=== PATIENT | female | born 1970 | race Caucasian/White ===

== ENCOUNTER 2016-09-11 17:24 | Emergency (ER) | payer BC ==
--- NOTE | ~2016-09-11 | EKG ---
PATIENT: CAROLINE REEVES UNIT #: [id number] Ventricular Rate: 84 BPM Atrial Rate: 84 BPM P-R Interval: 136 ms QRS Duration: 76 ms Q-T Interval: 352 ms QTC Calculation(Bezet): 415 ms P [place]: 29 degrees Calculated R [place]: 26 degrees Calculated T [place]: 6 degrees Diagnosis Line: Normal sinus rhythm Diagnosis Line: Normal ECG Diagnosis Line: No previous ECGs available Diagnosis Line: Confirmed by IRAIDA MCKINLEY MD ([id number]) on 09/13/2016 Diagnosis Line: 5:31:30 PM INTERPRETING MD: ARLEN VELAZCO
--- NOTE | ~2016-09-11 | CR72 ---
[facility] A Service of [facility] & [facility] RADIOLOGY TEXT RESULTS PATIENT: CAROLINE REEVES LOCATION: [facility] : 74 UNIT #: [id number] AGE: [address]: Azucena Barnard MD SEX: F ORDER DR: [id number] [facility] [address] [place], [place] [address] [id number] E MR#: [id number] Acc #: [id number] NAME: CAROLINE REEVES : 1970 SEX: F STUDY DATE/TIME: 09/11/2016 17:20 UNIT: [facility] ROOM: STUDY DESCRIPTION: CR Chest Single View Portable Attending Physician: Azucena Barnard M.D. Ordering Physician: Azucena Barnard M.D. Primary Care Physician: Gino Galdamez Jr., M.D. MEDICAL IMAGING REPORT This report is preliminary unless electronic signature is present EXAM Portable chest INDICATIONS 46-year-old female with history of chest fullness for 3 days and burning in left shoulder. No comparisons. FINDINGS The lungs are well expanded. There is no airspace consolidation. Heart size is normal. Visualized osseous structures are unremarkable. IMPRESSION No active disease Dictated by... Jh Campos M.D. THIS IS AN ELECTRONICALLY VERIFIED REPORT Jh Campos M.D. at 09/12/2016 3:36 PM ALEXANDER/dg TD: 09/12/2016 07:24 JOB #: [id number] MEDICAL IMAGING REPORT COPY
[2016-09-11 16:09] LABS: BASOPHIL# 0.1 X10e3 (0-0.3); BASOPHIL% 0.7 % (0-2.5); EOSINOPHIL# 0.1 X10e3 (0-0.7); EOSINOPHIL% 0.9 % (0.0-7.0); HEMATOCRIT 40.7 % (35.0-45.0); LYMPHOCYTE% 22.5 % (17.0-45.0); MEAN CELL VOLUME 84.4 FL (83-96); MEAN CORPUSCULAR HGB CONC 34.4 g/dL (30-36); MEAN PLATELET VOLUME 9.3 FL (6.5-11.5); MONOCYTE# 0.6 X10e3 (0-1.0); NEUTROPHIL# 6.1 X10e3 (1.5-7.1); NEUTROPHIL% 68.9 % (40-75); PLATELET COUNT 186 X10e3 (140-420); RED BLOOD COUNT 4.82 X10e (3.90-5.30); RED CELL DISTRIBUTION WIDTH 12.7 % (11.0-15.5); WHITE BLOOD COUNT 8.8 X10e3 (4.0-10.5)
[2016-09-11 16:11] LABS: DIFF IND NO
[2016-09-11 16:51] LABS: ALKALINE PHOSPHATASE 61 U/L (32-92); ALT (SGPT) 16 U/L (10-40); AST (SGOT) 14 U/L (10-42); BILIRUBIN, DIRECT 0.1 mg/dL (0.0-0.2); BILIRUBIN,INDIRECT 0.6 mg/dL (0.0-0.9); BILIRUBIN,TOTAL 0.7 mg/dL (0.2-2.0); BLOOD UREA NITROGEN 20 mg/dL (9-23); BUN/CREATININE RATIO 33.33; CALCIUM SERUM 8.7 mg/dL (8.4-10.2); CARBON DIOXIDE 26 mmol/L (22-31); CHLORIDE 101 mmol/L (100-111); CREATININE SERUM 0.6 mg/dL (0.6-1.4); GLOM FILT RATE Estimated ABOVE60 mL/min (>60); GLUCOSE FASTING 224 mg/dL (70-110); POTASSIUM 3.8 mmol/L (3.5-5.1); PROTEIN TOTAL SERUM 7.5 g/dL (6.0-8.3); SODIUM 134 mmol/L (135-145)
[2016-09-11 17:46] LABS: POC - CKMB <1.0 ng/mL (0.0-7.9); POC - TROPONIN <0.05 ng/mL (<=0.05)
[2016-09-11 18:36] LABS: POC - CKMB <1.0 ng/mL (0.0-7.9); POC - TROPONIN <0.05 ng/mL (<=0.05)
== END 2016-09-11 19:35 | disposition home or self-care (01) ==
LOC: CED 17:24
PROVIDERS: Emergency Medicine
DX: R07.9 Chest pain, unspecified (principal); I10 Essential (primary) hypertension; Z88.0 Allergy status to penicillin; Z88.1 Allergy status to other antibiotic agents
CPT/HCPCS: 36415; 71010; 80048; 80076; 82553; 84484; 84703; 85025; 85379; 93005; 99284

== ENCOUNTER 2016-09-14 01:26 | Emergency (ER) | payer BC ==
--- NOTE | ~2016-09-14 | CR72 ---
[facility] A Service of [facility] & [facility] RADIOLOGY TEXT RESULTS PATIENT: CAROLINE REEVES LOCATION: [facility] : 74 UNIT #: [id number] AGE: [address]: Cassidy Crane APRN SEX: F ORDER DR: [id number] [facility] [address] [place], [place] [address] [id number] E MR#: [id number] Acc #: [id number] NAME: CAROLINE REEVES : 1970 SEX: F STUDY DATE/TIME: 09/14/2016 0056 UNIT: [facility] ROOM: STUDY DESCRIPTION: CR Chest Single View Portable Attending Physician: Cassidy Crane A.P.R.N. Ordering Physician: Cassidy Crane A.P.R.N. Primary Care Physician: Samantha Garcia M.D. MEDICAL IMAGING REPORT This report is preliminary unless electronic signature is present EXAM Portable chest, 09/14 at 0056 hours. INDICATION Chest discomfort for the last several days with left leg swelling tonight. COMPARISON 09/11/2016 FINDINGS A single AP portable view of the chest shows both lungs to be clear. The heart is normal in size. The mediastinal contour is normal. No significant bone abnormalities are seen. IMPRESSION Normal portable chest. Dictated by... Paul Oneil Jr., M.D. THIS IS AN ELECTRONICALLY VERIFIED REPORT Paul Oneil Jr., M.D. at 09/14/2016 12:39 PM CATHIE/jennifer TD: 09/14/2016 09:39 JOB #: [id number] MEDICAL IMAGING REPORT COPY
--- NOTE | ~2016-09-14 | EKG ---
PATIENT: CAROLINE REEVES UNIT #: [id number] Ventricular Rate: 73 BPM Atrial Rate: 73 BPM P-R Interval: 132 ms QRS Duration: 82 ms Q-T Interval: 364 ms QTC Calculation(Bezet): 401 ms P [place]: 42 degrees Calculated R [place]: 47 degrees Calculated T [place]: 17 degrees Diagnosis Line: Normal sinus rhythm Diagnosis Line: Normal ECG Diagnosis Line: No previous ECGs available Diagnosis Line: Confirmed by BAKARI KENDALL MD ([id number]) on Diagnosis Line: 09/16/2016 11:57:56 PM INTERPRETING MD: FAIZA VELAZCO
[2016-09-14 01:19] LABS: URINE SOURCE CLEAN CATCH
[2016-09-14 01:19] LABS: POC - CKMB <1.0 ng/mL (0.0-7.9); POC - TROPONIN <0.05 ng/mL (<=0.05)
[2016-09-14 01:19] LABS: BASOPHIL# 0.1 X10e3 (0-0.3); BASOPHIL% 1.1 % (0-2.5); EOSINOPHIL# 0.1 X10e3 (0-0.7); EOSINOPHIL% 1.8 % (0.0-7.0); HEMATOCRIT 39.4 % (35.0-45.0); HEMOGLOBIN 13.3 gm/dL (12.0-16.0); LYMPHOCYTE# 2.3 X10e3 (1.0-3.5); MEAN CELL VOLUME 84.4 FL (83-96); MEAN CORPUSCULAR HEMOGLOBIN 28.4 PG (28-34); MEAN CORPUSCULAR HGB CONC 33.6 g/dL (30-36); MEAN PLATELET VOLUME 9.3 FL (6.5-11.5); MONOCYTE# 0.6 X10e3 (0-1.0); MONOCYTE% 8.3 % (3.0-12.0); NEUTROPHIL# 3.9 X10e3 (1.5-7.1); NEUTROPHIL% 55.8 % (40-75); PLATELET COUNT 174 X10e3 (140-420); RED BLOOD COUNT 4.68 X10e (3.90-5.30); RED CELL DISTRIBUTION WIDTH 13.1 % (11.0-15.5)
[2016-09-14 01:23] LABS: DIFF IND NO
[2016-09-14 01:27] LABS: URINE APPEARANCE CLEAR; URINE BILIRUBIN NEG (NEG); URINE BLOOD NEG (NEG); URINE COLOR YELLOW; URINE GLUCOSE >1000 MG/DL (NEG); URINE KETONE NEG (NEG); URINE LEUKOCYTE ESTERASE NEG (NEG); URINE NITRATE NEG (NEG); URINE PROTEIN NEG (NEG); URINE UROBILINOGEN 0.2 MG/DL (NEG)
[2016-09-14 01:40] LABS: ALBUMIN SERUM 3.8 g/dL (3.5-5.0); ALKALINE PHOSPHATASE 62 U/L (32-92); ALT (SGPT) 14 U/L (10-40); AST (SGOT) 12 U/L (10-42); BILIRUBIN,TOTAL 0.6 mg/dL (0.2-2.0); BLOOD UREA NITROGEN 15 mg/dL (9-23); CALCIUM SERUM 8.5 mg/dL (8.4-10.2); CARBON DIOXIDE 24 mmol/L (22-31); CHLORIDE 100 mmol/L (100-111); CREATININE SERUM 0.6 mg/dL (0.6-1.4); GLOM FILT RATE Estimated ABOVE60 mL/min (>60); GLUCOSE FASTING 358 mg/dL (70-110); POTASSIUM 3.6 mmol/L (3.5-5.1); SODIUM 131 mmol/L (135-145)
[2016-09-14 01:42] LABS: CULTURE INDICATED? NO
[2016-09-14 01:46] LABS: BILIRUBIN, DIRECT 0.1 mg/dL (0.0-0.2); BILIRUBIN,INDIRECT 0.5 mg/dL (0.0-0.9)
[2016-09-14 02:04] LABS: PROTHROMBIN TIME (PATIENT) 10.5 SECONDS (9.6-11.5)
[2016-09-14 02:42] LABS: POC - CKMB <1.0 ng/mL (0.0-7.9); POC - TROPONIN <0.05 ng/mL (<=0.05)
== END 2016-09-14 03:42 | disposition home or self-care (01) ==
LOC: CED 01:26
PROVIDERS: Nurse Practitioner
DX: R07.9 Chest pain, unspecified (principal); M79.89 Other specified soft tissue disorders; I10 Essential (primary) hypertension; R73.9 Hyperglycemia, unspecified; Z88.0 Allergy status to penicillin
CPT/HCPCS: 36415; 71010; 80048; 80076; 81003; 82553; 82947; 84484; 84703; 85025; 85379; 85610; 85730; 93005; 96360; 99284